=== PATIENT | female | born 1995 | race Caucasian/White ===

== ENCOUNTER 2019-12-01 15:52 | Outpatient (CLI) | payer BC, SELFPAY ==
--- NOTE | 2019-12-01 16:06 | MR_ITS ---
WS: [id number] MRI RIGHT KNEE HISTORY: KNEE JOINT PAIN, RIGHT COMPARISON: RIGHT femur radiograph 12/17/2012 and prior MRI 01/19/2009 Anterior cruciate ligament: Abnormal signal throughout the ACL. There is marked thickening with loss of the normal contour in a defect in the proximal ACL consistent with a complete tear. Posterior cruciate ligament: Intact. Medial collateral ligament: Intact. Posterior lateral corner structures: Intact. Medial menisci: Intact. Normal signal, size and shape. Lateral meniscus: Intact. Normal signal, size and shape. Extensor mechanism: Distal quadriceps tendon and patellar tendons are intact. Fluid and soft tissue: Small suprapatellar joint effusion. No Diane's cyst. Osseous and articular structures: Patellofemoral compartment: Normal. Medial compartment: Normal. Lateral compartment: Normal. Marrow signal abnormality in the distal femur. Signal abnormalities due to a prior intramedullary justine removal. MR/MR knee RT wo con* [id number] IMPRESSION: 1. Complete tear ACL. 2. Moderate-sized joint effusion.
== END 2019-12-01 15:53 | disposition home or self-care (01) ==
PROVIDERS: Family Provider Internal Medicine; PCP Internal Medicine; Visit Provider Nurse Practitioner Family
DX: S83.511A Sprain of anterior cruciate ligament of right knee, initial encounter (principal); X58.XXXA Exposure to other specified factors, initial encounter; M25.461 Effusion, right knee
CPT/HCPCS: 73721

== ENCOUNTER → 2021-06-10 15:03 | Outpatient (BNVA) | payer OTHER, SELFPAY | PROVIDERS: Family Provider Internal Medicine; PCP Internal Medicine; Visit Provider Obstetrics & Gynecology | DX: Z12.4 Encounter for screening for malignant neoplasm of cervix (principal) | CPT/HCPCS: 88175 ==

== ENCOUNTER → 2023-07-23 09:00 | Outpatient (BNVA) | payer OTHER, SELFPAY | PROVIDERS: Family Provider Internal Medicine; PCP Internal Medicine; Visit Provider Nurse Practitioner Women's Health | DX: Z12.4 Encounter for screening for malignant neoplasm of cervix (principal); N92.6 Irregular menstruation, unspecified; Z01.419 Encounter for gynecological examination (general) (routine) without abnormal findings | CPT/HCPCS: 83036; 83525; 84146; 84402; 84439; 84443; 84481; 87624 ==

== ENCOUNTER → 2023-08-12 10:15 | Outpatient (BNVA) | payer OTHER, SELFPAY | PROVIDERS: Family Provider Internal Medicine; PCP Internal Medicine; Referring Provider Obstetrics & Gynecology; Visit Provider Nurse Practitioner Women's Health | DX: N97.9 Female infertility, unspecified (principal) | CPT/HCPCS: 76830 ==

== ENCOUNTER → 2023-08-29 16:18 | Outpatient (BNVA) | payer OTHER, SELFPAY | PROVIDERS: Family Provider Internal Medicine; PCP Internal Medicine; Visit Provider Emergency Medicine | DX: S69.92XA Unspecified injury of left wrist, hand and finger(s), initial encounter; G56.02 Carpal tunnel syndrome, left upper limb; X58.XXXA Exposure to other specified factors, initial encounter | CPT/HCPCS: 73110 ==

== ENCOUNTER → 2023-09-23 09:00 | Outpatient (BNVA) | payer OTHER, SELFPAY | PROVIDERS: Family Provider Internal Medicine; PCP Internal Medicine; Visit Provider Obstetrics & Gynecology | DX: R87.619 Unspecified abnormal cytological findings in specimens from cervix uteri (principal); Z32.00 Encounter for pregnancy test, result unknown | CPT/HCPCS: 81025; 88305 ==

== ENCOUNTER → 2023-10-08 14:43 | Outpatient (BNVA) | payer OTHER, SELFPAY | PROVIDERS: Family Provider Internal Medicine; PCP Internal Medicine; Referring Provider Emergency Medicine; Visit Provider Student in an Organized Health Care Education/Training Program | DX: M79.642 Pain in left hand (principal); M25.531 Pain in right wrist | CPT/HCPCS: 73110 ==

== ENCOUNTER 2023-10-22 09:38 | Day surgery (SDC) | payer OTHER, SELFPAY ==
--- NOTE | 2023-10-21 23:53 | W.PM.OPSFHP ---
Same Day Surgery H&P Indication for Procedure/HPI DATE OF PROCEDURE: October 22, 2023 CHIEF COMPLAINT/INDICATIONFOR SURGICAL PROCEDURE: abnormal uterine bleeding frequent irregular spotting PREOP DIAGNOSIS: abnormal uterine bleeding PLANNED PROCEDURE: Operation Date: 10/22/23 11:35 Proposed Procedures p [id number]:Hysteroscopy w/ Endometrial Sampling,possible enodmetrial polypectomy,R87.619(Not Applicable) - Mayur Giraldo MD 27 y.o.? SA3 with ?random spotting for awhile? now scheduled for hysteroscopy, endometrial sampling, possible endometrial polypectomy Medications/Allergies* Allergies/Adverse Reactions Allergy/AdvReac Type Severity Reaction Status Date / Time latex Allergy Mild ALGY-Hives Verified 10/21/23 08:27 hydrocodone Allergy rash Verified 10/08/23 14:55 Pertinent History/Comorbid Conditions* Family History (Updated 06/10/21 @ 14:32 by Suad Price LPN) Diabetes Father type 2 Hyperlipidemia Father Cancer Grandmother Maternal--lung Hypertension Father Denies family history of CAD (coronary artery disease) Clotting disorder Chronic kidney disease (CKD) Bleeding disorder Thyroid disease Stroke Social History Smoking and tobacco/nicotine status: never used tobacco/nicotine Alcohol intake: current Alcohol intake frequency: few times a month Pertinent Exam Findings alert, oriented x 3, clear to auscultation bilaterally and regular rate & rhythm Pertinent Data Pelvic sono? 08-12-23? normal-sized uterus ?Endometrium ?8 mm ? Normal ovaries Recommendations Surgery/Procedure today Coding Level of Care Code Acute Code for Chg Fwd Time Spent (min) 20
[2023-10-22] VITALS (13 sets, daily range): BP systolic 115–150; BP diastolic 58–100; PULSE 62–88; RESP 16–17; TEMP 36.6–36.9; O2SAT 94–100
[2023-10-22] MEDS: sodium chloride 0.9% 1,000 ML 30 ML IV (10:04)
--- NOTE | 2023-10-22 10:22 | ANES.PREANE2 ---
Pre-Anesthetic Assessment Height/Weight: Height 1.78 m Weight 131.542 kg Temp Pulse Resp BP Pulse Ox O2 Del Method 97.8 F 70 16 133/73 99 Room Air 10/22/23 10:00 10/22/23 10:00 10/22/23 10:00 10/22/23 10:00 10/22/23 10:00 10/22/23 10:00 Preop Diagnosis: abnormal uterine bleeding Operation Date: 10/22/23 11:35 Proposed Procedures p [id number]:Hysteroscopy w/ Endometrial Sampling,possible enodmetrial polypectomy,R87.619(Not Applicable) - Mayur Giraldo MD Familial anesthetic complications: None (anesthesia/MAC was too light during her last D&C in [facility], states complained she was hurting during the procedure which alarmed the doctors) Was Beta Cooper taken within 24 hours: N/A Was Clonidine taken within 24 hours: N/A Last intake: Intake Last Liquid Date 10/21/23 Last Liquid Time 23:00 Last Solid Date 10/21/23 Last Solid Time 22:30 Social No alcohol and No tobacco Exam alert, oriented x 3, clear to auscultation bilaterally and regular rate & rhythm Airway Mallampati: Class II Dentition: other (several back teeth missing) Metabolic Morbid Obesity PCOS Anesthetic Plan ASA status: 2 Anesthesia: General Risk of > 500 ml blood loss (7ml/kg in children): No Medications/Allergies Home Medications Medication Instructions Recorded Confirmed Last Taken Type metformin 500 mg tablet 500 mg PO TIDWMEAL #90 tabs 07/27/23 10/22/23 Unknown Rx Allergies Allergy/AdvReac Type Severity Reaction Status Date / Time latex Allergy Mild ALGY-Hives Verified 10/21/23 08:27 hydrocodone Allergy rash Verified 10/08/23 14:55 [facility] Anesthesia Family History Grandmother Cancer Maternal--lung Father Diabetes type 2 Hyperlipidemia Hypertension Denies family history of CAD (coronary artery disease) Clotting disorder Chronic kidney disease (CKD) Bleeding disorder Thyroid disease Stroke Social History (Updated 10/08/23 @ 14:47 by Kati Rausch LPN) Smoking and tobacco/nicotine status: never used tobacco/nicotine Alcohol intake: current Alcohol intake frequency: few times a month Female Reproductive History Date of last menstrual period: 09/25/23 Data Anesthesia Cardiac Studies: No Data to Display
[2023-10-22 11:06] LABS: OR HCG Qualitative Urine Negative (Negative)
--- NOTE | 2023-10-22 11:21 | W.PM.OPSUD ---
Surgery/Procedure H&P Update DATE OF PROCEDURE: October 22, 2023 DATE H&P PERFORMED: 10/21/23 H&P UPDATE INFORMATION: I have reviewed H&P completed within last 30 days, I have examined patient prior to procedure and No changes to prior documentation PREOP DIAGNOSIS: abnormal uterine bleeding PLANNED PROCEDURE: Operation Date: 10/22/23 11:35 Proposed Procedures p [id number]:Hysteroscopy w/ Endometrial Sampling,possible enodmetrial polypectomy,R87.619(Not Applicable) - Mayur Giraldo MD
[2023-10-22] MEDS: fentaNYL 50 mcg/mL INJ 2mL IVP (13:00)
--- NOTE | 2023-10-22 13:25 | PM.OP ---
Operative Report Date of procedure: October 22, 2023 Pre-op diagnosis: abnormal uterine bleeding Post-op diagnosis: same Post-op findings: normal endometrial cavity No polyps / fibroids Moderate endometrial tissue Procedure done: hysteroscopy Curettage of uterus Specimens removed/disposition: endometrial curettings Surgeon: Mayur Giraldo MD Anesthesia: MAC Estimated blood loss (mL): 0 Complications: none Condition: stable Disposition: PACU Brief History: 27 y.o. SA3 with abnormal uterine bleeding Procedure: Informed consent signed. Patient was taken to the operating room. Anesthesia was induced. Patient was placed in dorsolithotomy position, prepped and draped for hysteroscopy. A bivalve speculum was placed in the vagina. The anterior lip of the cervix was grasped with a sharp-toothed tenaculum. The cervix was serially dilated with Hegar dilators. A hysteroscope was placed into the endometrial cavity. The endometrial cavity was seen to be normal. There were no polyps or fibroids. There was a moderate amount of endometrial tissue. The hysteroscope was then removed. Endometrial curettage was done with a sharp curette. Endometrial tissue was sent to pathology. The sharp-toothed tenaculum was removed. There was no bleeding from the endometrial cavity or cervix. The patient was then placed supine and awakened and taken to the PACU. Postop condition: stable EBL: none Sponge and instruments counts were normal x 2 Complications: none
[2023-10-22] MEDS: diphenhydrAMINE 50 mg/mL SDV 1mL 12.5 MG IVP (13:32)
--- NOTE | 2023-10-22 14:15 | ANE.PACU2 ---
Inpatient post-anesthesia follow up: Airway intact: Yes Vital signs: Temperature 98.1 F Pulse Rate 63 Respiratory Rate 16 Blood Pressure 122/87 Pulse Oximetry 97 Oxygen Delivery Me thod Room Air Oxygen Flow Rate 6 Fraction of Inspir ed Oxygen Hydration adequate: Yes Nausea and vomiting: No Pain level: 1 Mental status: Baseline
== END 2023-10-22 14:15 | disposition home or self-care (01) ==
PROVIDERS: Anesthesiology; PCP Internal Medicine; Visit Provider Obstetrics & Gynecology
PROC: 0UJD8ZZ Inspection of Uterus and Cervix, Via Natural or Artificial Opening Endoscopic (ICD-10-PCS; CPT 58555; principal; 2023-10-22 11:25)
DX: N93.9 Abnormal uterine and vaginal bleeding, unspecified (principal); E28.2 Polycystic ovarian syndrome; E66.01 Morbid (severe) obesity due to excess calories; Z68.41 Body mass index [BMI] 40.0-44.9, adult; Z79.84 Long term (current) use of oral hypoglycemic drugs
CPT/HCPCS: 58558; 81025; 84703; 88305; J1100; J1200; J1885; J2250; J2405; J2704; J3010; J7030

== ENCOUNTER 2024-05-02 05:47 | Day surgery (SDC) | payer OTHER, SELFPAY ==
[2024-05-02] VITALS (10 sets, daily range): BP systolic 105–144; BP diastolic 63–91; PULSE 65–80; RESP 14–20; TEMP 36.3–36.4; O2SAT 93–98; BMI 41.3
[2024-05-02 06:23] LABS: Glucose Point of Care 111 mg/dL (70-110)
[2024-05-02] MEDS: sodium chloride 0.9% 1,000 ML 30 ML IV (06:36)
[2024-05-02] MEDS: acetaminophen 1,000 MG/100 ML PIGGYBACK 400 MG IV (06:37)
[2024-05-02] MEDS: scopolamine 1.5 Patch 1 PATCH TRANSDERMA (06:43)
--- NOTE | 2024-05-02 06:44 | ANES.PREANE2 ---
Pre-Anesthetic Assessment Height/Weight: Height 1.75 m Weight 127.006 kg Temp Pulse Resp BP Pulse Ox O2 Del Method 97.5 F L 65 18 144/86 98 Room Air 05/02/24 06:06 05/02/24 06:06 05/02/24 06:06 05/02/24 06:43 05/02/24 06:06 05/02/24 06:25 Operation Date: 05/02/24 07:00 Proposed Procedures p Carpal Tunnel Release [id number], G56.02(Left) - Jase Lopez DO Familial anesthetic complications: Became highly anxious during sedation for an ovocyte retrieval procedure Was Beta Cooper taken within 24 hours: N/A Was Clonidine taken within 24 hours: N/A Last intake: Intake Last Liquid Date 05/01/24 Last Liquid Time 22:30 Last Solid Date 05/01/24 Last Solid Time 22:30 Social No alcohol and No tobacco Exam alert, oriented x 3, clear to auscultation bilaterally and regular rate & rhythm Airway Mallampati: Class II Dentition: other (couple missing) Metabolic Morbid Obesity PCOS Anesthetic Plan ASA status: 2 Anesthesia: MAC Risk of > 500 ml blood loss (7ml/kg in children): No Medications/Allergies Home Medications Medication Instructions Recorded Confirmed Last Taken Type metformin 500 mg tablet 500 mg PO TIDWMEAL #90 tabs 07/27/23 05/02/24 3 Months Ago Rx ~02/01/24 Allergies Allergy/AdvReac Type Severity Reaction Status Date / Time latex Allergy Mild ALGY-Hives Verified 04/27/24 11:14 hydrocodone Allergy rash Verified 04/27/24 11:14 Current Medications Generic Name Dose Route Start Last Admin Trade Name Freq PRN Reason Stop Dose Admin Sodium Chloride 1,000 mls @ 30 mls/hr 05/02/24 06:15 05/02/24 06:36 Sodium Chloride 0.9% IV 05/03/24 06:14 30 mls/hr .Q24H ELIER Administration PFSH Anesthesia Family History Grandmother Cancer Maternal--lung Father Diabetes type 2 Hyperlipidemia Hypertension Denies family history of CAD (coronary artery disease) Clotting disorder Chronic kidney disease (CKD) Bleeding disorder Thyroid disease Stroke Social History (Reviewed 04/05/24 @ 07:04 by HOMERO Mcneal Smoking and tobacco/nicotine status: never used tobacco/nicotine Alcohol intake: current Alcohol intake frequency: few times a month Data Anesthesia Cardiac Studies: No Data to Display
[2024-05-02] MEDS: ketorolac 30 mg/mL INJ IVP (06:45)
--- NOTE | 2024-05-02 06:56 | W.PM.OPSUD ---
Surgery/Procedure H&P Update DATE OF PROCEDURE: May 02, 2024 DATE H&P PERFORMED: 04/05/24 H&P UPDATE INFORMATION: I have reviewed H&P completed within last 30 days, I have examined patient prior to procedure and No changes to prior documentation PREOP DIAGNOSIS: Left carpal tunnel syndrome PRIMARY INDICATION FOR PROCEDURE: Left carpal tunnel syndrome PLANNED PROCEDURE: Operation Date: 05/02/24 07:00 Proposed Procedures p Carpal Tunnel Release [id number], G56.02(Left) - Jase Lopez DO
[2024-05-02] MEDS: ceFAZolin 2,000 MG in sodium chloride 0.9% (plus) 50 ML 100 MG IV (07:00)
[2024-05-02] MEDS: ceFAZolin 1,000 mg SDV 1000 MG IVP (07:18)
[2024-05-02] MEDS: ROPivacaine 0.5% SDV 30 mL 25 MG INJECTION (07:34)
[2024-05-02] MEDS: lidocaine-epi 1% 20 mL INJ 5 ML INJECTION (07:34)
--- NOTE | 2024-05-02 07:40 | P.BOP_ITS ---
Date of Procedure: 05/02/2024 Surgeon: Jase Lopez DO Police Dispatcher(s): None Procedure(s) performed: Left carpal tunnel release Findings of the procedure(s): Left carpal tunnel syndrome underwent procedure as planned without issues or complications Estimated blood loss: 1 mL Specimen(s) removed: None Post-operative diagnosis: Left carpal tunnel syndrome
--- NOTE | 2024-05-02 07:41 | PM.OP ---
Operative Report Date of procedure: May 02, 2024 Surgeon: Jase Lopez DO Procedure: Preoperative diagnosis: Left carpal tunnel syndrome post-op diagnosis: Same Procedure done: 1. Left carpal tunnel release Surgeon: Jase Lopez DO Anesthesia: MAC (Local) Estimated blood loss: 1 mL Tourniquet time 10 minutes IV fluids: See anesthesia record Complications: None Findings: See operative report narrative Condition: stable Disposition: same day Brief History: Patient is a pleasant 28year-old female?with left carpal tunnel syndrome.? Patient has been worked up in the outpatient setting findings and physical examination consistent with this.? Patient nerve?conduction studies consistent with a normal study however diagnostic cortisone injection of the carpal tunnel which provided her 1 to 2 months of relief and her symptoms returned. We detailed?out?patient's risk benefits complication alternatives with surgical and?nonsurgical treatment options. Through shared decision making, patient?agrees to proceed with surgical intervention of the left carpal tunnel release .? Patient understands and agrees with current plan.? All questions answered.? Patient elects to proceed with surgical intervention with carpal tunnel release. Procedure: Patient seen and evaluated in the preoperative holding area.? Consent was reviewed and signed with patient.? Correct extremity was marked.? Patient was seen evaluated by the anesthesia department once cleared for surgery was brought back to the operative suite.? Patient was kept on [facility] in supine position all bony prominences were well-padded patient properly secured to the bed.? Left upper extremity was then placed onto an armboard.? A nonsterile tourniquet was applied to the left upper arm.? Patient underwent anesthesia per the anesthesia department.? Patient's left upper extremity was then prepped and draped in standard orthopedic fashion.? Final timeout performed.? Patient received appropriate preoperative antibiotics. Under sterile aseptic technique patient received local anesthesia over the preplanned carpal tunnel incision site. Esmarch was used to exsanguinate the left upper extremity and tourniquet was insufflated to 250 mmHg. A standard mini open left carpal tunnel incision was made.? Starting distally at Bianchi's cardinal line in line with the fourth ray extending proximally distal to the wrist crease centered over the carpal tunnel.? Sharp scalpel incision was made through skin and subcutaneous tissue.? Self-retaining retractor was placed and the palmar fascia was identified.? This was then split longitudinally and direct visualization of the transverse carpal ligament was then made.? I then utilizing scalpel feathered through the transverse carpal ligament until I entered the floor of the transverse carpal tunnel ligament into the carpal tunnel.? Next I switched to dissection scissors and completed my release of the transverse carpal ligament distally with care to protect the recurrent motor branch.? I completely released into the palmar fat and until no entrapment was noted distally.? Care was made to protect the superficial palmar arch during my distal dissection.? Next focused my attention proximally placed a nasal speculum over the transverse carpal ligament to clear this very subcutaneous tissue to have direct visualization. Next I then placed a [place] underneath the transverse carpal tunnel ligament to protect the contents of the carpal tunnel and subsequently utilizing dissection scissors under loupe magnification completely released the transverse carpal ligament proximally into the median antebrachial fascia.? Care was made to protect the palmar cutaneous branch by keeping my scissors curved ulnarly.? Once completely released, I then placed my [place] and had appropriate decompression of the carpal tunnel proximally as well as distally.? I then inspected the contents of the carpal tunnel which showed an hourglass shape of the median nerve showing its compression.? No masses were noted.? Tendons appeared healthy.? Wound was then thoroughly irrigated.? Tourniquet deflated.? Hemostasis satisfactory with bipolar electrocautery.? I then closed the incision with interrupted nylon stitches.? Xeroform 4 x 4's and a bulky soft dressing was applied to the left upper extremity.? Patient was then awakened from anesthesia and taken to PACU in stable condition.? Patient tolerated procedure without complications. Disposition: Patient taken to PACU in stable condition recovering well.? Dressing clean dry and intact.? Patient will receive appropriate discharge instructions as well as pain medication postoperatively.? Patient to follow-up with me in the office in 2 weeks.? They understand they may be weightbearing as tolerated to the left hand.? Patient should keep incision clean dry and intact.? Patient understands if any questions or concerns may contact the office.
--- NOTE | 2024-05-02 09:05 | ANE.PACU2 ---
Inpatient post-anesthesia follow up: Airway intact: Yes Vital signs: Temperature 97.4 F Pulse Rate 66 Respiratory Rate 16 Blood Pressure 114/91 Pulse Oximetry 98 Oxygen Delivery Me thod Room Air Oxygen Flow Rate Fraction of Inspir ed Oxygen Hydration adequate: Yes Nausea and vomiting: No Pain level: 1 Mental status: Baseline
[2024-05-02 09:09] LABS: OR HCG Qualitative Urine Negative (Negative)
== END 2024-05-02 09:05 | disposition home or self-care (01) ==
PROVIDERS: Anesthesiology; PCP Internal Medicine; Visit Provider Student in an Organized Health Care Education/Training Program
PROC: (CPT 64721; principal; 2024-05-02 07:00)
DX: G56.02 Carpal tunnel syndrome, left upper limb (principal); E66.01 Morbid (severe) obesity due to excess calories; Z68.41 Body mass index [BMI] 40.0-44.9, adult; E28.2 Polycystic ovarian syndrome; Z79.84 Long term (current) use of oral hypoglycemic drugs
CPT/HCPCS: 64721; 36416; 81025; 82962; J0131; J0690; J1885; J2250; J2704; J2795; J3010; J7030

== ENCOUNTER → 2024-06-16 08:02 | Outpatient (BNVA) | payer OTHER, SELFPAY | PROVIDERS: PCP Internal Medicine; Visit Provider Physician Assistant | DX: Z98.890 Other specified postprocedural states (principal) | CPT/HCPCS: 73130 ==

== ENCOUNTER → 2024-08-09 07:34 | Outpatient (BNVA) | payer OTHER, SELFPAY | PROVIDERS: PCP Internal Medicine; Visit Provider Registered Nurse | DX: E88.819 Insulin resistance, unspecified (principal); E28.2 Polycystic ovarian syndrome | CPT/HCPCS: 80053; 80061; 83036; 83525 ==

== ENCOUNTER → 2024-09-08 17:12 | Outpatient (BNVA) | payer OTHER, SELFPAY | PROVIDERS: PCP Internal Medicine; Visit Provider Nurse Practitioner | DX: J06.9 Acute upper respiratory infection, unspecified (principal) | CPT/HCPCS: 87400; 87880 ==

== ENCOUNTER 2025-01-24 15:27 | Emergency (ER) | payer OTHER, SELFPAY ==
[2025-01-24 15:32] VITALS: BP 132/76; PULSE 105; RESP 15; TEMP 36.8; O2SAT 99; BMI 39.4
--- NOTE | 2025-01-24 15:54 | USR_ITS ---
PROCEDURE INFORMATION: Exam: US Duplex Right Lower Extremity Veins, Limited Exam date and time: 01/24/2025 5:37 PM Age: 29 years old Clinical indication: Swelling (edema) of limb; Lower extremity, right; Additional info: Leg swelling TECHNIQUE: Imaging protocol: Real-time duplex ultrasound of the right extremity with 2-D boykin scale, color Doppler flow and spectral waveform analysis including responses to compression and other maneuvers (when performed) with image documentation. Limited exam was focused on the right lower extremity veins. COMPARISON: No relevant prior studies available. FINDINGS: Right deep veins: Unremarkable. The common femoral, femoral, proximal profunda femoral and popliteal veins are patent without thrombus. Normal Doppler waveforms. Normal compressibility and/or augmentation response. Superficial veins: Greater saphenous vein at the saphenofemoral junction is patent without thrombus. Soft tissues: Unremarkable. US/[place] [id number] IMPRESSION: No evidence of deep vein thrombosis.
--- NOTE | 2025-01-24 17:11 | ED_ITS ---
HPI - Extremity Problem General: Chief complaint: Extremity Problem,Nontraumatic Stated complaint: R leg swelling Time Seen by Provider: 01/24/25 16:48 History of Present Illness: 29-year-old female presents emergency ro om with complaint of right leg swelling and discomfort feels like she has a blood clot. She has not had blood clots prior. She injured the right knee previously. She is not on any anticoagulation. No shortness of breath or chest pain. Associated symptoms: Deny chest pain, fever(s) or rash Related Data Previous Rx's ?Medication ?Instructions ?Recorded diclofenac sodium 75 mg 75 mg PO Q12H PRN pain #20 t abs 01/24/25 tablet,delayed release tizanidine 4 mg tablet 4 mg PO Q6H PRN muscle spast icity 01/24/25 #20 tabs Allergies Allergy/AdvReac Type Severity Reaction Status Date / Time hydrocodone Allergy ADR-Confusi Verified 01/24/25 15:38 on Review of Systems Const: Denies: fever(s) or chills Card: Denies: chest pain Resp: Denies: dyspnea GI: Denies: abdominal pain : Denies: dysuria, urinary frequency or urinary urgency Musc: Denies: neck pain or back pain Skin/Breast: Denies: rash Physical Exam Const: COMMON NORMALS: no acute distress GENERAL APPEARANCE: cooperative and comfortable ORIENTATION/CONSCIOUSNESS: Yes awake, Yes oriented to person, Yes oriented to place and Yes oriented to time HENMT: COMMON NORMALS: normocephalic, atraumatic and hearing grossly normal bilaterally HEAD & SCALP: normocephalic and atraumatic Resp: COMMON NORMALS: normal respiratory effort, No retractions, No use of accessory muscles and clear to auscultation bilaterally AUSCULTATION: clear to auscultation bilaterally Cardio: COMMON NORMALS: regular rate, regular rhythm and No murmurs present (Cardio) RATE: regular rate RHYTHM: regular rhythm GI: COMMON NORMALS: Soft to palpation and No hepatosplenomegaly present AUSCULTATION: Yes normoactive bowel sounds PALPATION: Yes Soft to palpation, No Tenderness to palpation present (GI), No Guarding due to palpation present (GI) and Yes No hepatosplenomegaly present Extremity: COMMON NORMALS: normal to inspection, capillary refill normal, no clubbing, cyanosis or edema, no calf tenderness and no pedal edema Neuro: SENSORIUM/ORIENTATION: Yes oriented to person, Yes oriented to place and Yes oriented to time Skin: COMMON NORMALS: no rashes or lesions noted GENERAL SKIN EXAM: no rashes or lesions noted Course Vital Signs: Vital signs: Vital Signs Temperature 98.2 F 01/24/25 15:32 Pulse Rate 86 01/24/25 18:36 Respiratory Rate 15 01/24/25 15:32 Blood Pressure 151/95 01/24/25 18:36 Pulse Oximetry 94 01/24/25 18:36 Oxygen Delivery Me thod Room Air 01/24/25 15:32 MDM - Extremity (Nontraumatic) Medical Decision Making No evidence of DVT. X-ray done there is no evidence of fracture. Will place patient in a knee immobilizer with crutches started on anti-inflammatories patient asked about a muscle relaxer we can try that although not sure it will help significantly. Will set her up see orthopedics. Lab Data Radiology Impressions Venous Duplex 01/24/25 15:54 IMPRESSION: No evidence of deep vein thrombosis. Knee X-Ray 01/24/25 18:00 IMPRESSION: As above. All radiology interpretation(s) finalized by discharge Discharge Plan Discharge Patient Disposition: Home Clinical Impression: Leg pain, right Condition: Stable Prescriptions: New diclofenac sodium 75 mg tablet,delayed release (DR/EC) 75 mg PO Q12H PRN (Reason: pain) Qty: 20 0RF tizanidine 4 mg tablet 4 mg PO Q6H PRN (Reason: muscle spasticity) Qty: 20 0RF Rx Instructions: do not exceed 3 doses per 24 hrs Discharge Orders: Discharge ED (Routine); Ordered 01/24/25 Ordered By: Rylan Hayes Referrals: Niesha Torre FNP [Primary Care Provider] - Discharge Diet: Usual diet Discharge Activity: Increase activity as tolerated Patient Instructions: Opioid Safety, Pain Management Activity Restrictions/Additional Instructions: Thank you for choosing [facility] for your healthcare needs today. It is very important that you follow up as instructed or that you return to the Emergency Department should you have concerns or if your condition changes or worsens in any way. You were seen in the emergency room with complaint of left leg pain and calf pain. There is no evidence of DVT on the ultrasound done in the emergency room. Swelling and discomfort are likely related to the knee injury. Print Language: Uzbek Coding Level of Care Code ED Bias Machine Operator Helper for Nam Isaacs
--- NOTE | 2025-01-24 18:00 | XRR_ITS ---
PROCEDURE INFORMATION: Exam: XR Right Knee Exam date and time: 01/24/2025 6:09 PM Age: 29 years old Clinical indication: Pain; Knee; Right; Prior surgery; Surgery date: 6+ months; Surgery type: RT acl; Additional info: Trauma TECHNIQUE: Imaging protocol: Radiologic exam of the right knee. Views: 3 views. COMPARISON: [place] [id number] 01/24/2025 5:37 PM FINDINGS: Bones/joints: Incompletely visualized bony excrescence involving the medial aspect of the mid femoral diaphysis. There are orthopedic ghost tracks within the femur and tibia at the knee joint. No definite acute fracture or traumatic malalignment. Small cortical plate along the proximal anterior femur cortex. No dislocation. Tricompartmental degenerative changes are present. No knee joint effusion. Soft tissues: Normal. XR/XR knee RT 3V* [id number] IMPRESSION: As above.
[2025-01-24 18:36] VITALS: BP 151/95; PULSE 86; O2SAT 94
--- NOTE | 2025-01-30 09:16 | DCPLANNER ---
Referral sent to Ortho: 29-year-old female presents emergency room with complaint of right leg swelling and discomfort feels like she has a blood clot. Medical Decision Making No evidence of DVT. X-ray done there is no evidence of fracture. Will place patient in a knee immobilizer with crutches started on anti-inflammatories patient asked about a muscle relaxer we can try that although not sure it will help significantly. Will set her up see orthopedics.
== END 2025-01-24 18:37 | disposition home or self-care (01) ==
PROVIDERS: Emergency Provider Family Medicine; PCP Registered Nurse
DX: M79.604 Pain in right leg (principal)
CPT/HCPCS: 29530; 73562; 93971; 99284; E0114

== ENCOUNTER → 2025-01-25 07:17 | Outpatient (BNVA) | payer OTHER, SELFPAY | PROVIDERS: PCP Registered Nurse; Visit Provider Nurse Practitioner Family | DX: M79.604 Pain in right leg (principal) | CPT/HCPCS: 80048; 85025; 86140 ==

== ENCOUNTER 2025-02-23 06:50 | Outpatient (CLI) | payer OTHER, SELFPAY ==
--- NOTE | 2025-02-23 07:15 | MRR_ITS ---
PROCEDURE INFORMATION: Exam: MR Right Lower Extremity Joint Without Contrast, Knee Exam date and time: 02/23/2025 7:18 AM Age: 29 years old Clinical indication: Pain; Knee; Right; Prior surgery; Surgery date: 6+ months; Surgery type: Acl repair; Additional info: M25.561 - pain in right knee, XR done TECHNIQUE: Imaging protocol: Magnetic resonance imaging of the right lower extremity joint without contrast. Exam focused on the knee. COMPARISON: MR knee RT wo con* [id number] 12/01/2019 4:24 PM FINDINGS: There is evidence of prior anterior cruciate ligament reconstruction. The graft is intact. The posterior cruciate ligament is intact. The medial collateral ligament and lateral collateral complex are normal in appearance. The medial and lateral menisci are normal in morphology and signal intensity. No meniscal tear is identified. The extensor mechanism is intact. There is no evidence of acute fracture or dislocation. Bone marrow signal is normal. Alignment is anatomic. There is mild tricompartmental osteoarthrosis. There is a small suprapatellar effusion. MR/MR knee RT wo con* [id number] IMPRESSION: 1. Intact anterior cruciate ligament reconstruction. 2. Mild tricompartmental osteoarthrosis. 3. Small effusion.
== END 2025-02-23 06:51 | disposition home or self-care (01) ==
PROVIDERS: PCP Registered Nurse; Visit Provider Registered Nurse
DX: M17.11 Unilateral primary osteoarthritis, right knee (principal); Z98.890 Other specified postprocedural states; M25.461 Effusion, right knee
CPT/HCPCS: 73721

== ENCOUNTER → 2025-03-01 09:57 | Outpatient (BNVA) | payer OTHER, SELFPAY | PROVIDERS: PCP Registered Nurse; Visit Provider Registered Nurse | DX: E11.9 Type 2 diabetes mellitus without complications (principal) | CPT/HCPCS: 83036; 83525 ==